=== PATIENT | male | born 2000 | race Caucasian/White ===

== ENCOUNTER 2020-05-21 01:15 | Emergency (ER) | payer MEDICAID ==
[~2020-05-21] VITALS: Ht 172.7 cm; Wt 64.7 kg
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
[2020-05-21] MEDS ORDERED: CEFAZOLIN PMX 1GM/50ML 50 ML IV ONE (01:30)
[2020-05-21] MEDS ORDERED: DIPH,PERTUSS(ACELL),TET VAC/PF 0.5 ML IM-VACC ONE ×2 (01:30→01:31)
[2020-05-21] MEDS ORDERED: FENTANYL PF 100 MCG/2ML IVPush ONE ×2 (01:30→03:30)
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
[2020-05-21] MEDS ORDERED: FENTANYL PF 100 MCG/2ML ONE (01:31)
[2020-05-21] MEDS ORDERED: CEFAZOLIN PMX 1GM/50ML 50 ML ONE (01:31)
--- NOTE | 2020-05-21 01:41 | NUR ---
PIV PLACED. PT MEDICATED FOR PAIN PER EMAR.
[2020-05-21] MEDS ORDERED: LIDOCAINE-MPF 1%, 5ML ONE (01:45)
[2020-05-21] MEDS ORDERED: LIDOCAINE 1%, 10ML INFIL ONE (02:00)
[2020-05-21 03:47] VITALS: BP 123/85
--- NOTE | 2020-05-21 03:47 | NUR ---
PT DISCHARGED WITH WOUND CARE SUPPLIES. MOTHER TO TAKE PT TO HER HOUSE IN PRIVATE VEHICLE.
== END 2020-05-21 03:49 | disposition home or self-care (01) ==
LOC: ED 03:18
DX: S81.842A Puncture wound with foreign body, left lower leg, initial encounter (principal); W34.09XA Accidental discharge from other specified firearms, initial encounter; Y93.89 Activity, other specified; Y92.89 Other specified places as the place of occurrence of the external cause; Y99.8 Other external cause status
CPT/HCPCS: 73590; 93005; 96365; 96375; 96376; 99284; J0690; J3010